=== PATIENT | male | born 1995 | race Caucasian/White ===

== ENCOUNTER 2016-08-23 18:06 | Emergency (ER) | payer BC ==
[~2016-08-23] VITALS: Ht 175.3 cm; Wt 71.4 kg
[2016-08-23 19:10] VITALS: BP 127/75
== END 2016-08-23 19:11 | disposition home or self-care (01) ==
LOC: EME 18:06
DX: R55 Syncope and collapse (principal); R51 Headache
CPT/HCPCS: 93005; 99281; 99284